=== PATIENT | male | born 1990 | race Caucasian/White ===

== ENCOUNTER 2019-10-20 14:56 | Emergency (ER) | payer BC ==
[~2019-10-20] VITALS: Ht 188 cm; Wt 79.0 kg
[2019-10-20 15:04] VITALS: BP 119/80
[2019-10-20] MEDS ORDERED: HYDROCODONE/ACETAMINOPHEN 5/325MG TABLET PO ONE (15:15)
[2019-10-20] MEDS ORDERED: ONDANSETRON 4MG ODT PO ONE (15:15)
== END 2019-10-20 18:25 | disposition home or self-care (01) ==
LOC: ER 14:56
DX: S42.415A Nondisplaced simple supracondylar fracture without intercondylar fracture of left humerus, initial encounter for closed fracture (principal); S00.83XA Contusion of other part of head, initial encounter; M54.2 Cervicalgia; R07.89 Other chest pain; I10 Essential (primary) hypertension; V43.53XA Car driver injured in collision with pick-up truck in traffic accident, initial encounter; Y93.89 Activity, other specified; Y92.488 Other paved roadways as the place of occurrence of the external cause
CPT/HCPCS: 29105; 70486; 72070; 72100; 72125; 73080; 99285; Q0162